=== PATIENT | female | born 1990 ===

== ENCOUNTER 2025-09-03 22:16 | Emergency (ER) | payer MEDICAID ==
[~2025-09-03] VITALS: Ht 167.6 cm; Wt 59.1 kg
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
[2025-09-03 22:53] VITALS: TEMP 98.7
[2025-09-03 22:56] VITALS: BP 146/101; PULSE 98; RESP 16; O2SAT 98
== END 2025-09-03 23:02 | disposition home or self-care (01) ==
LOC: ER 22:17
DX: Z02.89 Encounter for other administrative examinations (principal); V49.9XXA Car occupant (driver) (passenger) injured in unspecified traffic accident, initial encounter; Y93.89 Activity, other specified; Y92.89 Other specified places as the place of occurrence of the external cause; Y99.8 Other external cause status
CPT/HCPCS: 99283